=== PATIENT | female | born 1940 | race Caucasian/White ===

== ENCOUNTER 2018-08-22 13:30 | Emergency (ER) | payer OTHER ==
--- NOTE | 2018-08-22 14:06 | EDPHY ---
H & P Stated Complaint: pt says woke up today feeling dizziness and palpitations, similar sx to pe Time Seen by Provider: 08/22/18 13:46 HPI/ROS: CHIEF COMPLAINT: Rapid heart rate, dizziness HISTORY OF PRESENT ILLNESS: 77-year-old female with a history of recurrent pulmonary embolism presents with rapid heart rate and dizziness. She awoke this morning with a rapid heart rate. Associated with dizziness, especially with standing. The dizziness is moderate and is relieved with supine positioning. No shortness of breath or chest pain. Similar symptoms with prior pulmonary embolism x2. Not on anticoagulants. REVIEW OF SYSTEMS: complete 10 point ROS reviewed and is negative except for the noted elements in the HPI - Medical/Surgical History Hx Asthma: No Hx Chronic Respiratory Disease: No Hx Diabetes: No Hx Cardiac Disease: Yes Hx Renal Disease: No Hx Cirrhosis: No Hx Alcoholism: No Hx HIV/AIDS: No Hx Splenectomy or Spleen Trauma: No Other PMH: OCCASIONAL HTN (NO MEDS), PE X2 (2009 AND 2011), REFLUX, IB SYMPTONS - Social History Smoking Status: Never smoked Alcohol Use: Sober - Physical Exam Exam: General Appearance: Alert, pleasant Eyes: Pupils equal and round, no conjunctival pallor or injection ENT, Mouth: Mucous membranes moist Neck: Normal inspection Respiratory: Lungs are clear to auscultation Cardiovascular: Regular tachycardia, heart rate 100 Gastrointestinal: Abdomen is soft and nontender Neurological: A&O, nonfocal exam Skin: Warm and dry, no rash Extremities: Nontender, no pedal edema Psychiatric: Anxious Constitutional: Initial Vital Signs Temperature (C) 36.7 C 08/22/18 13:39 Heart Rate 119 H 08/22/18 13:39 Respiratory Rate 20 08/22/18 13:39 Blood Pressure 190/86 H 08/22/18 13:39 O2 Sat (%) 97 08/22/18 13:39 O2 Delivery Mode Room Air Allergies/Adverse Reactions: alendronate sodium [From Fosamax] Allergy (Verified 08/22/18 13:43) Penicillins Allergy (Verified 08/22/18 13:43) Sulfa (Sulfonamide Antibiotics) Allergy (Verified 08/22/18 13:43) Home Medications: Medication Instructions Recorded Zolpidem Tartrate [Ambien] 15 mg PO HSPRN PRN 11/23/11 Aspirin [Aspirin 81mg (OTC)] 81 mg PO DAILY 09/29/12 Medical Decision Making - Diagnostics EKG Interpretation: EKG interpreted by me reveals normal sinus rhythm, rate 93, borderline prolonged QT interval, no ST or T segment changes. Interpretation: Borderline EKG Imaging Results: Chest/Thorax CTA 08/22/18 14:03 Impression: 1. No evidence for pulmonary embolic disease. 2. No source for chest pain identified. Results discussed with Dr. Vivas at 3:51 PM. Imaging: Discussed imaging studies w/ call center dispatcher Radiologist ED Course/Re-evaluation: This pt presents with dizziness and tachycardia. stat EKG reveals no evidence of ischemia or dysrhythmia. She has associated significant anxiety and I tried to reassure her on multiple occasions. Given typical symptoms of pulmonary embolism, CT pulmonary angiogram obtained. CT scan results discussed with the patient. No evidence of pulmonary embolism. Patient is relieved. Will give IV normal saline 500 mL prior to discharge, as now the patient feels dehydrated. She is tolerating oral fluids well. HR 90 's. Discharge instructions given by me. Will follow up with PCP on Friday. Differential Diagnosis: Dizziness including but not limited to pulmonary embolism, peripheral and central causes of vertigo, orthostatic causes including dehydration, and blood loss. - Data Points Laboratory Results: Laboratory Results 08/22/18 14:10 08/22/18 14:10 Medications Given: Discontinued Medications Sodium Chloride (Ns) 500 mls @ 0 mls/hr IV ONCE ONE; Wide Open PRN Reason: Protocol Stop: 08/22/18 16:11 Last Admin: 08/22/18 16:15 Dose: 500 mls Point of Care Test Results: Chemistry 08/22/18 08/22/18 14:18 14:16 POC Sodium 142 mEq/L mEq/L (135-145) POC Potassium 3.9 mEq/L mEq/L (3.3-5.0) POC Chloride 104 mEq/L mEq/L (97-110) POC BUN 15 mg/dL mg/dL (7-23) POC Creatinine 0.7 mg/dL mg/dL (0.6-1.0) POC Glucose 101 mg/dL H mg/dL (70-100) POC Troponin I 0.00 ng/mL ng/mL (0.00-0.08) ISTAT H&H 08/22/18 14:16 POC Hgb 15.0 gm/dL gm/dL (12.6-16.3) POC Hct 44 % % (38-47) Departure - Departure Disposition: Home, Routine, Self-Care Clinical Impression: Dizziness Condition: Good Instructions: Dizziness (ED) Additional Instructions: This CT scan of your chest is normal. You do not have a blood clot in your lungs. Your blood pressure is elevated today. Please have this rechecked. Referrals: Yissel Mir MD [Primary Care Provider] - As per Instructions
[2018-08-22 14:27] LABS: PLATELET COUNT 279 10^3/uL (150-400)
[2018-08-22] MEDS ORDERED: IOPAMIDOL (ISOVUE 370) 100 ML BTL IV ONE (14:32)
--- NOTE | 2018-08-22 15:53 | CPEKG ---
Test Reason : OPEN Blood Pressure : / mmHG Vent. Rate : 093 BPM Atrial Rate : 094 BPM P-R Int : 176 ms QRS Dur : 089 ms QT Int : 382 ms P-R-T Axes : 060 032 030 degrees QTc Int : 476 ms Sinus rhythm Confirmed by Lisa Vivas ([id number]) on 08/22/2018 3:52:58 PM Referred By: Confirmed By:Lisa Vivas
[2018-08-22] MEDS ORDERED: NS 500 ML IV ONE (16:10)
[2018-08-22 16:49] VITALS: BP 173/102
== END 2018-08-22 16:50 | disposition home or self-care (01) ==
DX: R42 Dizziness and giddiness (principal); R00.0 Tachycardia, unspecified; E86.0 Dehydration; Z86.711 Personal history of pulmonary embolism
CPT/HCPCS: 71275; 93005; 99285; Q9967; 82435-PO; 82565-PO; 82947-PO; 84132-PO; 84295-PO; 84484-PO; 84520-PO; 85014-PO